=== PATIENT | male | born 1980 | race Caucasian/White ===

== ENCOUNTER 2018-12-16 21:39 | Emergency (ER) | payer OTHER ==
[~2018-12-16] VITALS: Ht 177.8 cm; Wt 77.3 kg
[~2018-12-16 21:39] MED LIST: NO HOME MEDS
[2018-12-16] MEDS ORDERED: metoclopramide 5 mg/ml inj IV ONE (21:45)
[2018-12-16] MEDS ORDERED: LORazepam 2 mg/ml vial IV ONE (21:45)
[2018-12-16] MEDS ORDERED: diphenhydrAMINE 50 mg/ml inj IV ONE (21:45)
[2018-12-16] MEDS ORDERED: normal saline 1000ML IV soln IVB ONE ×2 (21:45)
[2018-12-16] MEDS ORDERED: iohexol 300mg/ml 100ml inj. ONE (21:47)
[2018-12-16 22:11] LABS: ALANINE AMINOTRANSFERASE 32 U/L (12-78); ALBUMIN 4.4 G/DL (3.4-5.0); ALBUMIN/GLOBULIN RATIO 1.3 (1.1-1.5); ALKALINE PHOSPHATASE 79 IU/L (46-116); ANION GAP 13 (8-16); ASPARTATE AMINO TRANSFERASE 21 U/L (10-37); BILIRUBIN,TOTAL 0.7 MG/DL (0.1-1.0); BLOOD UREA NITROGEN 14 MG/DL (7-18); BUN/CREATININE RATIO 12.3 (5.4-32.0); CHLORIDE 106 MMOL/L (99-107); CREATININE 1.14 MG/DL (0.60-1.10); GLUCOSE 129 MG/DL (70-104); LIPASE 93 U/L (73-393); POTASSIUM 3.6 MMOL/L (3.5-5.1); SODIUM 143 MMOL/L (135-145); TOTAL CARBON DIOXIDE 24.4 MMOL/L (24-32); TOTAL PROTEIN 7.8 G/DL (6.4-8.2); eGFR 72 ML/MIN
--- NOTE | 2018-12-16 22:11 | NUR ---
PIV IN PLACE, LABS DRAWN, GIVEN ATIVAN, BENEDRYL, REGLAN IV AND PT NOW REPROTS PAIN IS STILL SEVERE BUT NAUSEA IS GONE AND HE IS LESS RESTLESS ON THE GURNEY. AWAITING CT W CONTRAST. AT BEDSIDE. BP 160/95. REPROTS HE HAS SOME BURNING WITH LAST VOID AND FELT SOME PAIN UP TO HIS RIGHT ABD WITH THAT VOID. REPROTS HE HAS SOME LOW BACK PAIN YESTERDAY IN THE "KIDNEY AREA'. PT WITH HX OF KIDNEY STONE A FEW YRS AGO.
[2018-12-16 22:23] LABS: BASOPHILS # (AUTO) 0.1 X10'3 (0-0.2); BASOPHILS % (AUTO) 0.9 % (0-1); EOSINOPHILS # (AUTO) 0.1 X10'3 (0-0.9); EOSINOPHILS % (AUTO) 0.9 % (0-6); HEMOGLOBIN 16.9 g/dl (14.0-17.9); LYMPHOCYTES # (AUTO) 1.9 X10'3 (1.1-4.8); LYMPHOCYTES % (AUTO) 29.2 % (21-51); MEAN CORPUSCULAR HEMOGLOBIN 30.4 PG (27.0-31.0); MEAN CORPUSCULAR HGB CONC 35.2 g/dL (33.0-36.5); MEAN CORPUSCULAR VOLUME 86.5 FL (78-98); MEAN PLATELET VOLUME 7.5 FL (7.4-10.4); MONOCYTES # (AUTO) 0.5 X10'3 (0-0.9); MONOCYTES % (AUTO) 7.8 % (2-12); NEUTROPHILS % (AUTO) 61.2 % (42-75); PLATELET COUNT 233 X10'3 (140-440); RED BLOOD COUNT 5.55 X10'6 (4.70-6.10); RED CELL DISTRIBUTION WIDTH 12.7 % (11.5-14.5); WHITE BLOOD COUNT 6.6 X10'3 (4.5-11.0)
--- NOTE | 2018-12-16 23:57 | NUR ---
AWAITING CT READ. PT REPRORTS PAIN RANGING FROM 6-8 AND COMING INTERMITTENTLY. REPROTS NAUSEA RETURNEING. REMAINS AT BEDISDE. STABLE VS.
[2018-12-17] MEDS ORDERED: ketorolac trometh. 30mg/ml inj. IV ONE
[2018-12-17] MEDS ORDERED: HYDR-3965 PO (00:10)
[2018-12-17] MEDS ORDERED: FLO0.4C PO (00:10)
--- NOTE | 2018-12-17 01:10 | NUR ---
PT REPORTS HE ATTEMPTED TO URINATE, BUT UNABLE .
[2018-12-17] MEDS ORDERED: normal saline 1000ML IV soln IVB ONE ×2 (01:15→02:10)
--- NOTE | 2018-12-17 01:38 | NUR ---
DR. FULTON UPDATED OF PT INABLILTY TO VOID. 3RD LITER NS ORDERD. PT WITH STABLE VS. LYING ON HIS RIGHT SIDE ON GURNEY. REPROTS PAIN IS 5 OUT OF 10 AND NO FURTHER NAUSEA.
--- NOTE | 2018-12-17 02:20 | NUR ---
pt reports he is still unable to void. 4th liter ns orderd by .
[2018-12-17 03:21] LABS: CLARITY,URINE CLEAR (Clear); COLOR,URINE YELLOW (Yellow); GLUCOSE, URINE NEGATIVE (Neg); KETONES,URINE TRACE mg/dl (Neg); LEUKOCYTE ESTERASE ,URINE NEGATIVE (Neg); NITRITES, URINE NEGATIVE (Neg); OCCULT BLOOD,URINE LARGE (Neg); PROTEIN,URINE NEGATIVE (Neg); UROBILINOGEN,URINE 0.2 E.U/dL (0.2-1.0)
[2018-12-17 03:25] LABS: UA COLLECTION TYPE CLN CATCH MIDSTREAM
[2018-12-17 03:30] LABS: RBC,URINE 20-50 /HPF (0-2); WBC,URINE 0-4 /HPF (0-4)
[2018-12-17 03:31] LABS: BACTERIA,URINE NONE SEEN /HPF (Neg); MUCUS STRANDS NONE SEEN /LPF (Neg); SQUAMOUS EPITHELIAL CELL,UR NONE SEEN /LPF (FEW)
[2018-12-17 04:23] VITALS: BP 145/85
== END 2018-12-17 04:24 | disposition home or self-care (01) ==
LOC: ER 21:40
DX: N23 Unspecified renal colic (principal); N13.30 Unspecified hydronephrosis; E86.0 Dehydration; R11.0 Nausea; F17.210 Nicotine dependence, cigarettes, uncomplicated; Z79.899 Other long term (current) drug therapy
CPT/HCPCS: 36415; 74177; 80053; 81001; 83690; 85025; 96361; 96374; 96375; 99284; J1200; J1885; J2060; J2765; J7030; Q9967

== ENCOUNTER 2019-10-18 03:00 | Inpatient (IN) | payer SELFPAY ==
[~2019-10-18] VITALS: Ht 180.3 cm; Wt 81.8 kg
--- NOTE | 2019-10-18 03:06 | NUR ---
SHANIQUE [phone]
[2019-10-18] MEDS ORDERED: ondansetron/PF 4mg/2ml inj IV ONE (03:10)
[2019-10-18] MEDS ORDERED: ketorolac trometh. 30mg/ml inj. IV ONE (03:10)
[2019-10-18] MEDS: morphine 4 MG/ML inj SYRINge IV PRN ×2 (03:31→04:01)
[2019-10-18 03:42] LABS: BASOPHILS # (AUTO) 0.1 X10'3 (0-0.2); BASOPHILS % (AUTO) 0.9 % (0-1); EOSINOPHILS # (AUTO) 0.1 X10'3 (0-0.9); EOSINOPHILS % (AUTO) 1.1 % (0-6); HEMATOCRIT 45.5 % (42.0-52.0); HEMOGLOBIN 15.9 g/dl (14.0-17.9); LYMPHOCYTES # (AUTO) 2.5 X10'3 (1.1-4.8); MEAN CORPUSCULAR HEMOGLOBIN 30.4 PG (27.0-31.0); MEAN CORPUSCULAR VOLUME 86.7 FL (78-98); MEAN PLATELET VOLUME 7.8 FL (7.4-10.4); MONOCYTES # (AUTO) 0.6 X10'3 (0-0.9); MONOCYTES % (AUTO) 8.9 % (2-12); NEUTROPHILS # (AUTO) 3.5 X10'3 (1.8-7.7); NEUTROPHILS % (AUTO) 52.1 % (42-75); PLATELET COUNT 242 X10'3 (140-440); RED BLOOD COUNT 5.24 X10'6 (4.70-6.10); RED CELL DISTRIBUTION WIDTH 12.8 % (11.5-14.5); WHITE BLOOD COUNT 6.8 X10'3 (4.5-11.0)
[2019-10-18 03:44] LABS: ALANINE AMINOTRANSFERASE 28 U/L (12-78); ALBUMIN 4.3 G/DL (3.4-5.0); ALBUMIN/GLOBULIN RATIO 1.2 (1.1-1.5); ALKALINE PHOSPHATASE 81 IU/L (46-116); ANION GAP 10 (8-16); ASPARTATE AMINO TRANSFERASE 22 U/L (10-37); BILIRUBIN,TOTAL 0.7 MG/DL (0.1-1.0); BLOOD UREA NITROGEN 18 MG/DL (7-18); BUN/CREATININE RATIO 15.8 (5.4-32.0); CALCIUM 9.5 MG/DL (8.5-10.1); CHLORIDE 107 MMOL/L (99-107); CREATININE 1.14 MG/DL (0.60-1.10); GLUCOSE 122 MG/DL (70-104); LIPASE 109 U/L (73-393); POTASSIUM 3.1 MMOL/L (3.5-5.1); SODIUM 143 MMOL/L (135-145); TOTAL CARBON DIOXIDE 25.7 MMOL/L (24-32); TOTAL PROTEIN 7.8 G/DL (6.4-8.2); eGFR 72 ML/MIN
[2019-10-18] MEDS ORDERED: magnesium Cl slow-release 64mg tablet PO PRN (04:25)
[2019-10-18] MEDS ORDERED: potassium Cl 20 mEq SR tablet PO STA (04:25)
[2019-10-18] MEDS ORDERED: magnesium 4gm in 100ml NS 100 ML IV PRN (04:25)
[2019-10-18] MEDS ORDERED: proCHLORperazine 10 MG/2 ml inj IV PRN (04:25)
[2019-10-18] MEDS ORDERED: potassium CL 10mEq/100ml bag 100 ML IV PRN ×2 (04:25)
[2019-10-18] MEDS ORDERED: diazepam inj 5 MG/ML inj. IV PRN (04:25)
[2019-10-18] MEDS ORDERED: mag hydrox/Alum hydrox/simeth 30ml oral suspension PO PRN (04:25)
[2019-10-18] MEDS ORDERED: acetaminophen 325mg tablet PO PRN (04:25)
[2019-10-18] MEDS ORDERED: magnesium hydroxide 30ml (MOM) UD suspension PO PRN (04:25)
[2019-10-18] MEDS ORDERED: potassium Cl 20 mEq SR tablet PO PRN ×2 (04:25)
[2019-10-18] MEDS ORDERED: ondansetron/PF 4mg/2ml inj IV PRN (04:25)
[2019-10-18] MEDS ORDERED: magnesium 2GM in 50ml NS 50 ML IV PRN (04:25)
[2019-10-18] MEDS ORDERED: HYDROmorphone 1 mg/ml syringe IV PRN (04:25)
[2019-10-18] MEDS ORDERED: diazepam inj 5 MG/ML inj. IV ONE (04:35)
[2019-10-18] MEDS ORDERED: fentaNYL/PF 50MCG/1 ML 2ML syringe IV ONE (04:35)
[2019-10-18 05:30] VITALS: BP 149/87
[2019-10-18] MEDS ORDERED: normal saline 1000ml 1,000 ML IV SCH (06:10)
--- NOTE | 2019-10-18 06:17 | NUR ---
Problems reprioritized. Patient report given, questions answered & plan of care reviewed with NAS Mendoza.
[2019-10-18] MEDS ORDERED: K and/or MAG REPLACEMENT MC SCH (08:00)
--- NOTE | 2019-10-18 08:00 | NUR ---
Potassium replaced in the ER.
[2019-10-18 10:00] VITALS: BP 127/75
[2019-10-18] MEDS ORDERED: FLO0.4C PO (13:00)
[2019-10-18] MEDS ORDERED: HYDR-4383 PO (13:00)
--- NOTE | 2019-10-18 14:26 | NUR ---
PIV removed, cannula intact. Belongings sent home with patient. Narcotic prescriptions handed to patient. Prescription called to [facility].
== END 2019-10-18 13:40 | disposition home or self-care (01) | DRG 694 ==
LOC: ER 03:00 → ED HOLD 04:25 → ORTHO 4S 05:26
PROVIDERS: ADMIT Family Medicine; ATTEND Internal Medicine
DX: N13.2 Hydronephrosis with renal and ureteral calculous obstruction (principal); E87.6 Hypokalemia; F17.210 Nicotine dependence, cigarettes, uncomplicated; Z87.442 Personal history of urinary calculi; Z79.899 Other long term (current) drug therapy
CPT/HCPCS: 36415; 74176; 80053; 83690; 85025; 87081; 99285; G0378; J1885; J2270; J2405; J3010; J3360; J7030

== ENCOUNTER 2019-10-20 00:26 | Emergency (ER) | payer SELFPAY ==
[~2019-10-20] VITALS: Ht 177.8 cm; Wt 81.0 kg
[~2019-10-20 00:26] MED LIST changes: +FLO0.4C PO; +HYDR-4383 PO; -NO HOME MEDS
[2019-10-20 00:36] VITALS: BP 145/95
[2019-10-20] MEDS ORDERED: ketorolac tromethamine 15mg/ml inj. IV ONE (00:45)
[2019-10-20] MEDS ORDERED: sildenafil citrate 20mg tablet PO SCH (00:50)
[2019-10-20] MEDS ORDERED: normal saline 1000ML IV soln IVB ONE (00:50)
[2019-10-20] MEDS ORDERED: NAPR-56 PO (02:57)
== END 2019-10-20 03:13 | disposition home or self-care (01) ==
LOC: ER 00:27
DX: N23 Unspecified renal colic (principal); Z79.899 Other long term (current) drug therapy
CPT/HCPCS: 96374; 99283; J1885; J7030

== ENCOUNTER 2020-12-06 04:23 | Emergency (ER) | payer SELFPAY ==
[~2020-12-06] VITALS: Ht 180.3 cm; Wt 90.0 kg
[~2020-12-06 04:23] MED LIST changes: -FLO0.4C PO
[2020-12-06] MEDS ORDERED: ketorolac tromethamine 15mg/ml inj. IV ONE (04:50)
[2020-12-06] MEDS ORDERED: normal saline 1000ml 1,000 ML IV ONE (04:50)
[2020-12-06 05:04] LABS: BASOPHILS % (AUTO) 0.9 % (0-1); EOSINOPHILS % (AUTO) 0.8 % (0-6); HEMOGLOBIN 15.6 g/dl (14.0-17.9); LYMPHOCYTES % (AUTO) 25.1 % (21-51); MEAN CORPUSCULAR HEMOGLOBIN 30.8 PG (27.0-31.0); MEAN CORPUSCULAR HGB CONC 34.6 g/dL (33.0-36.5); MEAN PLATELET VOLUME 7.5 FL (7.4-10.4); MONOCYTES # (AUTO) 0.7 X10'3 (0-0.9); MONOCYTES % (AUTO) 17.8 % (2-12); NEUTROPHILS # (AUTO) 2.1 X10'3 (1.8-7.7); NEUTROPHILS % (AUTO) 55.4 % (42-75); PLATELET COUNT 155 X10'3 (140-440); RED BLOOD COUNT 5.05 X10'6 (4.70-6.10); RED CELL DISTRIBUTION WIDTH 12.4 % (11.5-14.5); WHITE BLOOD COUNT 3.9 X10'3 (4.5-11.0)
[2020-12-06 05:19] LABS: ALANINE AMINOTRANSFERASE 36 U/L (12-78); ALBUMIN 3.6 G/DL (3.4-5.0); ALBUMIN/GLOBULIN RATIO 1.2 (1.1-1.5); ALKALINE PHOSPHATASE 88 IU/L (46-116); ANION GAP 9 (8-16); ASPARTATE AMINO TRANSFERASE 21 U/L (10-37); BILIRUBIN,TOTAL 0.3 MG/DL (0.1-1.0); BLOOD UREA NITROGEN 9 MG/DL (7-18); BUN/CREATININE RATIO 9.7 (5.4-32.0); CALCIUM 8.4 MG/DL (8.5-10.1); CHLORIDE 103 MMOL/L (99-107); CREATININE 0.93 MG/DL (0.60-1.10); GLUCOSE 147 MG/DL (70-104); LIPASE 81 U/L (73-393); POTASSIUM 4.1 MMOL/L (3.5-5.1); SODIUM 141 MMOL/L (135-145); TOTAL CARBON DIOXIDE 28.8 MMOL/L (24-32); TOTAL PROTEIN 6.7 G/DL (6.4-8.2); eGFR 90 ML/MIN
[2020-12-06 05:28] VITALS: BP 141/84
[2020-12-06 06:24] LABS: PLATELET ESTIMATE NORMAL; TOTAL CELLS COUNTED 100
== END 2020-12-06 07:56 | disposition home or self-care (01) ==
LOC: ER 04:24
DX: R10.9 Unspecified abdominal pain (principal); Z20.822 Contact with and (suspected) exposure to COVID-19; M79.10 Myalgia, unspecified site; Z87.442 Personal history of urinary calculi; Z79.899 Other long term (current) drug therapy
CPT/HCPCS: 36415; 74176; 80053; 83690; 85007; 85025; 87635; 96374; 99284; C9803; J1885; J7030

== ENCOUNTER 2024-12-19 05:25 | Emergency (ER) | payer BC, OTHER ==
[~2024-12-19] VITALS: Ht 175.3 cm; Wt 72.5 kg
[2024-12-19 05:40] VITALS: BP 136/45; PULSE 93; RESP 15; TEMP 98.6; O2SAT 99
--- NOTE | 2024-12-19 07:33 | ELECTROCARDIOGRAPH REPORT ---
[facility] Test Date: 2024-12-19 Test Time: 05:33:29 Pat Name: TORI JACOBSEN Department: ED Room: Gender: M Vp Product Management: : 1980 Requested By: DEPARTMENT EMERGENCY Order Number: [id number] Reading MD: Measurements Intervals [place] Rate: 92 P: 44 PA: 154 QRS: 82 QRSD: 94 T: 14 QT: 341 QTc: 422 Interpretive Statements Sinus rhythm Baseline wander in lead(s) V4 Please click the below link to view image of tracing.
== END 2024-12-19 08:14 | disposition left against medical advice (07) ==
LOC: ER 05:26
DX: M25.511 Pain in right shoulder (principal); I49.8 Other specified cardiac arrhythmias; Z53.21 Procedure and treatment not carried out due to patient leaving prior to being seen by health care provider
CPT/HCPCS: 93005